=== PATIENT | male | born 1995 | race Caucasian/White ===

== ENCOUNTER 2019-04-16 11:34 | Emergency (ER) | payer SELFPAY ==
[~2019-04-16] VITALS: Ht 172.7 cm; Wt 68.9 kg
[2019-04-16 11:40] VITALS: BP 128/70
== END 2019-04-16 12:05 | disposition home or self-care (01) ==
LOC: ER 11:34
DX: R21 Rash and other nonspecific skin eruption (principal); L30.9 Dermatitis, unspecified
CPT/HCPCS: Z7502